=== PATIENT | male | born 1970 | race Two or more races ===

== ENCOUNTER 2023-10-11 12:33 | Emergency (ER) | payer MEDICAID ==
[~2023-10-11] VITALS: Ht 172.7 cm; Wt 111.1 kg
[2023-10-11] MEDS ORDERED: KETOROLAC TROMETHAMINE INJ 30 MG/ML VIAL ONE ×2 (13:26→13:29)
[2023-10-11] MEDS ORDERED: KETOROLAC TROMETHAMINE INJ 30 MG/ML VIAL IM ONE (13:30)
[2023-10-11 14:08] VITALS: TEMP 98.2
[2023-10-11] MEDS ORDERED: IBUP-1955 PO (14:30)
[2023-10-11 14:40] VITALS: BP 120/72; O2SAT 99
== END 2023-10-11 14:41 | disposition home or self-care (01) ==
LOC: ER 12:33
DX: M17.11 Unilateral primary osteoarthritis, right knee (principal); M25.561 Pain in right knee; E78.5 Hyperlipidemia, unspecified; Z90.89 Acquired absence of other organs
CPT/HCPCS: 99283; 96372; 73564; J1885

== ENCOUNTER 2024-07-13 21:48 | Emergency (ER) | payer SELFPAY ==
[~2024-07-13] VITALS: Ht 180.3 cm; Wt 111.2 kg
[~2024-07-13 21:48] MED LIST: IBUP-1955 PO
[2024-07-13 22:47] VITALS: BP 136/66; TEMP 99.4; O2SAT 95
== END 2024-07-13 23:52 | disposition left against medical advice (07) ==
LOC: ER 21:52
DX: R42 Dizziness and giddiness (principal); R53.1 Weakness; Z53.21 Procedure and treatment not carried out due to patient leaving prior to being seen by health care provider